=== PATIENT | female | born 1950 | race Caucasian/White ===

== ENCOUNTER 2019-05-23 12:46 | Emergency (ER) | payer OTHER ==
[~2019-05-23] VITALS: Ht 157.5 cm; Wt 62.1 kg
[2019-05-23 12:53] VITALS: BP 145/70
--- NOTE | 2019-05-23 13:26 | NUR ---
Patient ambulated to bed 5. RN evaluating patient at bedside.
--- NOTE | 2019-05-23 13:37 | NUR ---
PT C/O PRODUCTIVE COUGH X SUNDAY PT STATES SHE RECIEVED THE FLU SHOT ON SUNDAY ORAL TEMP WAS TEMP NOW 102.4. IN TRIAGE. TYLENOL EXTRA STRENGTH ADMINISTERED PO. PT ADDS H/A AND BODY ACHES (ESPECIALLY BACK WHEN AMBULATING), PAIN 11/06. PT STATES SHE TOOK ROBUTUSSIN, AND OTC FEVER MEDICATION THIS AM BUT CANT RECALL NAME LUNGS CLEAR BILATERALLY. PT ALERT AND AWAKE. AMBULATES WITH STEADY GAIT. HX- HTN
[2019-05-23] MEDS ORDERED: ACETAMINOPHEN EXTRA STRENGTH 500 MG TAB PO ONE (13:40)
--- NOTE | 2019-05-23 13:53 | NUR ---
FLU SWAB COLLECTED IN TRIAGE
--- NOTE | 2019-05-23 13:54 | NUR ---
INFLUENZA A POSITIVE, INFLUENZA B NEGATIVE CRITICAL TAKEN BY ASAD MEDEIROS, DR WAN NOTIFIED BY ASAD MEDEIROS
--- NOTE | 2019-05-23 14:13 | NUR ---
NADR, PAIN 09/06
--- NOTE | 2019-05-23 15:03 | NUR ---
Dr. Serrano is evaluating the patient at bedside.
[2019-05-23 15:23] VITALS: BP 150/67
== END 2019-05-23 15:20 | disposition home or self-care (01) ==
LOC: MED 12:46
DX: J10.1 Influenza due to other identified influenza virus with other respiratory manifestations (principal); I10 Essential (primary) hypertension
CPT/HCPCS: 71045; 87804; 99284

== ENCOUNTER 2022-02-17 07:43 | Emergency (ER) | payer OTHER ==
[~2022-02-17] VITALS: Ht 157.5 cm; Wt 63.0 kg
[2022-02-17 07:53] VITALS: BP 164/83
--- NOTE | 2022-02-17 07:59 | NUR ---
Patient ambulated to bed 2.
[2022-02-17] MEDS ORDERED: DIPH25SG5 PO (08:18)
[2022-02-17] MEDS ORDERED: PRED20TA5 PO (08:18)
--- NOTE | 2022-02-17 08:30 | NUR ---
PT WALKED TO ROOM IN STABLE GAIT. A/OX4. CO BEE ALL OVER THE BODY. NO FURHTER CO. PT WAS EXAMINED BY ED MD THEN D/C'D HOME WITH RX. Patient discharged with v/s stable. Written and verbal after care instructions given and explained. Patient alert, oriented and verbalized understanding of instructions. Ambulatory with steady gait. All questions addressed prior to discharge. ID band removed. Patient advised to follow up with PMD. Rx of BENADRY AND PREDNISONE given. Patient educated on indication of medication including possible reaction and side effects. Opportunity to ask questions provided and answered.
[2022-02-17 08:31] VITALS: BP 145/75
== END 2022-02-17 08:30 | disposition home or self-care (01) ==
LOC: MED 07:43
DX: S40.862A Insect bite (nonvenomous) of left upper arm, initial encounter (principal); S40.861A Insect bite (nonvenomous) of right upper arm, initial encounter; S80.862A Insect bite (nonvenomous), left lower leg, initial encounter; S80.861A Insect bite (nonvenomous), right lower leg, initial encounter; S20.469A Insect bite (nonvenomous) of unspecified back wall of thorax, initial encounter; R21 Rash and other nonspecific skin eruption; I10 Essential (primary) hypertension; Z79.899 Other long term (current) drug therapy; W57.XXXA Bitten or stung by nonvenomous insect and other nonvenomous arthropods, initial encounter; Y93.89 Activity, other specified; Y92.89 Other specified places as the place of occurrence of the external cause; Y99.8 Other external cause status
CPT/HCPCS: 99283

== ENCOUNTER 2023-12-13 14:59 | Emergency (ER) | payer MEDICARE, OTHER ==
[~2023-12-13] VITALS: Ht 157.5 cm; Wt 61.7 kg
[~2023-12-13 14:59] MED LIST: DIPH25SG5 PO; PRED20TA5 PO
[2023-12-13 15:41] VITALS: BP 137/73; PULSE 64; RESP 16; TEMP 98.1; O2SAT 97
[2023-12-13] MEDS: KETOROLAC 60 MG/2 ML VIAL IM ONE (17:33)
[2023-12-13] MEDS ORDERED: IBUP-2213 PO (17:42)
[2023-12-13] MEDS ORDERED: ACET-8905 PO (17:42)
[2023-12-13 17:53] VITALS: O2SAT 97
== END 2023-12-13 17:55 | disposition home or self-care (01) ==
LOC: MED 14:59
DX: S00.11XA Contusion of right eyelid and periocular area, initial encounter (principal); I10 Essential (primary) hypertension; Z79.899 Other long term (current) drug therapy; X58.XXXA Exposure to other specified factors, initial encounter; Y93.89 Activity, other specified; Y92.89 Other specified places as the place of occurrence of the external cause; Y99.8 Other external cause status
CPT/HCPCS: 96372; 99283; J1885